=== PATIENT | female | born 1970 | race Two or more races ===

== ENCOUNTER 2025-07-10 08:58 | Outpatient (AMB) | payer MEDICAID, SELFPAY ==
--- NOTE | 2025-07-10 09:06 | GSCOFFNT_ITS ---
Vital Signs - [facility] 07/10/25 09:10 Height 1.57 m Height Method Measured Weight 67.358 kg Weight Measurement Method Standing Scale BMI 27.1 BP 151/88 H Blood Pressure Source Automatic Cuff Blood Pressure Location Left Upper Arm Position Sitting Respiration 18 Pulse 73 Pulse Source Monitor Temp 97.7 F Temp Source Temporal Artery Scan Pulse Oximetry (%) 96 Oxygen Delivery Method Room Air Med/Allergies Allergies & Medications Allergies No Known Allergies Allergy (Verified 07/10/25 09:11) Medication Reconciliation atorvastatin 10 mg tablet 10 mg PO QDAY 07/10/25 [History Confirmed 07/10/25] glipizide 10 mg tablet 10 mg PO QDAY 07/10/25 [History Confirmed 07/10/25] hydrochlorothiazide 12.5 mg capsule 12.5 mg PO QAM 07/10/25 [History Confirmed 07/10/25] lisinopril 40 mg tablet 40 mg PO QDAY 07/10/25 [History Confirmed 07/10/25] metformin 1,000 mg tablet,extended release 24hr (osmotic) 1,000 mg PO QDAY 07/10/25 [History Confirmed 07/10/25] methimazole 5 mg tablet 5 mg PO QDAY 07/10/25 [History Confirmed 07/10/25] sitagliptin phosphate 100 mg tablet (Januvia) 100 mg PO QDAY 07/10/25 [History Confirmed 07/10/25] MA Intake Visit Data Collection New Patient or Established: New Patient (never been to [facility]) Seen by Clinical Staff ONLY (RN/MA): No Reason for Visit:: REFERRAL CHOLELITHIASIS Pain Present Currently: No Pain Scale Used: Benitez-Montanze/Numerical Delivery Mgr Required: No PCP or OBGYN visit in last 3 months: Yes Hx Now: No Do You Feel Safe at Home: Yes Authorities Contacted: N/A Smoking Status Smoking Status: Never smoker Immunization / Flu Flu Vaccine in the Last 12 Months: Yes Flu Vaccine Exclusion Criteria: Already Received Past Medical History Social History SMOKING STATUS: Smoking status: Never smoker HPI HPI Narrative Spoke to pt with in-person american sign language interpreter 54F referred for incidental cholelithiasis. Pt underwent routine bloodwork which showed slight elevations in ALT/AST for which US was then ordered, it was done 03/2025 at [facility] and showed a 2.1cm possible hepatic cyst adjacent to the gallbladder as well as a 6mm gallstone, hepatic steatosis and splenomegaly. Pt reports she sometimes has LLQ pain but it tends to come and go, is relieved after having a BM. She denies any history of epigastric or RUQ pain. Her PCP also referred her to Hepatology but she has not yet heard back Pt states she does have a feeling of acid/bile buildup in her throat, she has not used any medications for reflux PMH: HTN, HLD, DMII, hyperthyroidism PSHx: Csections Meds: No antiplt or anticoagulation Allergies: NKDA Social hx: No alcohol use Family hx: No known CRC ROS Review of Systems Systems Reviewed: All systems reviewed, normal except as documented Objective/Exam General General Appearance: alert, cooperative and well groomed Resp Respiratory exam: Absent respiratory distress Abdominal Abdominal exam: Present soft; Absent distention or tenderness Results US report reviewed Assessment & Plan Diagnosis / Problem List (1) Cholelithiasis: Status: Acute Assessment & Plan: 54F incidentally found to have cholelithiasis on workup for elevated liver enzymes. As pt does not have symptoms I explained that surgery is not likely to confer benefit. I recommended she follow up with her PCP for the hepatology referral as well as for a screening colonoscopy. All questions were answered and pt is encouraged to reach out with concerns or questions and/or if symptoms develop Office Procedures GNS Level of Care Nursing/Assessment Patient Status: Established Patient Nursing Assessment/Reassesment: Medication Reconciliation, Update PMH in EMR and Vital Signs Coordination of Care: Complex Care and Chronic Disease 1-5, Consent,records obtained, informed consent, Education Simp Pt/Fam, Results/Orders obtained and Staff clarify orders Established Patient Charge Established Patient Point Assignment: 90 Established Patient Point Charge: EP Level 3 (80-115) Patient Portal Questionaires Social History Tobacco History Smoking Status: Never smoker Domestic Abuse History Do You Feel Safe at Home: Yes Review of Systems Report any current symptoms Only answer those that you have currently: Past Medical History Past Medical History Have you ever been diagnosed with any of the following:
[2025-07-10 09:10] VITALS: BP 151/88; PULSE 73; RESP 18; TEMP 36.5; O2SAT 96; BMI 27.1
== END 2025-07-10 09:37 | disposition home or self-care (01) ==
PROVIDERS: PCP Nurse Practitioner Family; Referring Provider Nurse Practitioner Family; Supervising Provider Surgery; Visit Provider Surgery
DX: K80.20 Calculus of gallbladder without cholecystitis without obstruction (principal); I10 Essential (primary) hypertension; E11.9 Type 2 diabetes mellitus without complications
CPT/HCPCS: 99213; G0463